=== PATIENT | female | born 1980 | race Caucasian/White ===

== ENCOUNTER 2017-03-15 16:25 | Emergency (ER) | payer OTHER ==
[~2017-03-15] VITALS: Ht 162.6 cm; Wt 85.8 kg
[2017-03-15 16:58] VITALS: BP 105/58
== END 2017-03-15 16:58 | disposition home or self-care (01) ==
LOC: ED 16:25
DX: Z00.00 Encounter for general adult medical examination without abnormal findings (principal); E03.9 Hypothyroidism, unspecified

== ENCOUNTER 2017-08-18 21:27 | Emergency (ER) | payer OTHER ==
[~2017-08-18] VITALS: Ht 152.4 cm; Wt 79.8 kg
[2017-08-18 21:33] VITALS: BP 101/67; Ht 152.4 cm; Wt 79.8 kg
== END 2017-08-18 22:06 | disposition left against medical advice (07) ==
LOC: ED 21:27
DX: Z53.21 Procedure and treatment not carried out due to patient leaving prior to being seen by health care provider (principal)

== ENCOUNTER 2017-08-18 23:47 | Emergency (ER) | payer OTHER ==
[~2017-08-18] VITALS: Ht 152.4 cm; Wt 79.8 kg
[2017-08-19 00:18] VITALS: Ht 152.4 cm; Wt 79.8 kg
[2017-08-19 02:00] LABS: BASOPHIL % 0.4 % (0-2); PLATELET COUNT 248 x10^3mcL (130-400); RED CELL DISTRIBUTION WIDTH 13.2 % (11.5-14.5)
[2017-08-19 03:27] LABS: ALBUMIN 4.1 g/dL (3.4-5.0); BILIRUBIN TOTAL 0.99 mg/dL (0.20-1.00); CALCIUM 8.8 mg/dL (8.5-10.1); CARBON DIOXIDE 25.9 mmol/L (21-32); CREATININE SERUM 1.2 mg/dL (0.6-1.0); TOTAL PROTEIN, SERUM 7.8 g/dL (6.4-8.2)
[2017-08-19 03:29] LABS: POTASSIUM SERUM 2.9 mmol/L (3.5-5.1)
[2017-08-19 05:20] LABS: microscopic required? YES; urine erythrocyte 1+ (NEGATIVE)
[2017-08-19 07:07] VITALS: BP 107/72
== END 2017-08-19 07:07 | disposition home or self-care (01) ==
LOC: ED 23:47
PROVIDERS: Emergency Medicine
DX: R10.11 Right upper quadrant pain (principal); E87.6 Hypokalemia; R05 Cough
CPT/HCPCS: J1885; J2405; J3475; J7030; J7050; Q0092

== ENCOUNTER 2018-04-20 21:33 | Emergency (ER) | payer OTHER ==
[~2018-04-20] VITALS: Ht 152.4 cm; Wt 82.1 kg
[2018-04-20 21:49] VITALS: Ht 152.4 cm; Wt 82.1 kg
[2018-04-20 23:13] VITALS: BP 129/72
== END 2018-04-20 23:13 | disposition home or self-care (01) ==
LOC: ED 21:33
DX: T26.42XA Burn of left eye and adnexa, part unspecified, initial encounter (principal); T26.41XA Burn of right eye and adnexa, part unspecified, initial encounter; T23.101A Burn of first degree of right hand, unspecified site, initial encounter; E03.9 Hypothyroidism, unspecified; E78.00 Pure hypercholesterolemia, unspecified; X08.8XXA Exposure to other specified smoke, fire and flames, initial encounter; Y93.G3 Activity, cooking and baking; Y92.89 Other specified places as the place of occurrence of the external cause; Y99.8 Other external cause status

== ENCOUNTER 2018-05-02 19:05 | Emergency (ER) | payer OTHER ==
[~2018-05-02] VITALS: Ht 157.5 cm; Wt 81.2 kg
[2018-05-02 19:10] VITALS: Ht 157.5 cm; Wt 81.2 kg
[2018-05-02 20:44] VITALS: BP 117/75
== END 2018-05-02 20:44 | disposition home or self-care (01) ==
LOC: ED 19:05
DX: G62.9 Polyneuropathy, unspecified (principal); E78.00 Pure hypercholesterolemia, unspecified
CPT/HCPCS: 82962

== ENCOUNTER 2018-11-11 15:30 | Emergency (ER) | payer OTHER ==
[~2018-11-11] VITALS: Ht 152.4 cm; Wt 75.7 kg
[2018-11-11 15:38] VITALS: BP 110/75
== END 2018-11-11 19:02 | disposition home or self-care (01) ==
LOC: ED 15:30
DX: J02.9 Acute pharyngitis, unspecified (principal); E78.00 Pure hypercholesterolemia, unspecified; E03.9 Hypothyroidism, unspecified

== ENCOUNTER 2019-01-15 02:52 | Emergency (ER) | payer OTHER ==
[~2019-01-15] VITALS: Ht 129.5 cm; Wt 77.2 kg
[2019-01-15 02:58] VITALS: Ht 129.5 cm; Wt 77.2 kg
[2019-01-15 03:42] VITALS: BP 107/79
== END 2019-01-15 03:42 | disposition home or self-care (01) ==
LOC: ED 02:52
DX: B35.4 Tinea corporis (principal); Z86.39 Personal history of other endocrine, nutritional and metabolic disease

== ENCOUNTER 2019-06-03 03:59 | Emergency (ER) | payer OTHER ==
[~2019-06-03] VITALS: Ht 129.5 cm; Wt 76.2 kg
[2019-06-03 04:07] VITALS: Ht 129.5 cm; Wt 76.2 kg
[2019-06-03 05:05] VITALS: BP 118/51
== END 2019-06-03 05:05 | disposition home or self-care (01) ==
LOC: ED 03:59
DX: H92.01 Otalgia, right ear (principal); E78.00 Pure hypercholesterolemia, unspecified; E03.9 Hypothyroidism, unspecified